=== PATIENT | male | born 1990 | race Caucasian/White ===

== ENCOUNTER → 2021-01-04 | Outpatient (CLI) | payer OTHER ==
[~2021-01-04] MED LIST: FLEXERIL 10 MG10 MG PO; IBUPROFEN800 MG PO; PERCOCET 5/325 T1 EA PO; PROTONIX40 MG PO; ZANTAC150 MG PO
== END ==
LOC: RAD 08:53
DX: M75.101 Unspecified rotator cuff tear or rupture of right shoulder, not specified as traumatic (principal)
CPT/HCPCS: 73040; 73222; Q9962

== ENCOUNTER → 2021-06-12 | Outpatient (CLI) | payer OTHER | LOC: US 13:30 | DX: M79.604 Pain in right leg (principal) | CPT/HCPCS: 93971 ==